=== PATIENT | male | born 1970 | race Caucasian/White ===

== ENCOUNTER → 2017-05-22 | Outpatient (CLI) | payer MEDICARE, OTHER ==
[~2017-05-22] MED LIST: ALPR0.25 PO; HYDR-3366 PO; MELO7.5T4 PO
[2017-05-22 08:02] LABS: ANION GAP 6 MEQ/L (5-15); AST (GOT) 11 U/L (15-37); BICARBONATE 25.8 MEQ/L (21.0-32.0); BLOOD UREA NITROGEN 19 MG/DL (7-18); CHLORIDE 109 MEQ/L (98-107); GLOMERULAR FILTRATION RATE 79 ML/MIN (>89); GLUCOSE,FASTING 101 MG/DL (74-99); POTASSIUM 3.9 MEQ/L (3.5-5.1); SODIUM (NA) 141 MEQ/L (136-145)
[2017-05-22 08:03] LABS: ALT (GPT) 22 U/L (12-78)
[2017-05-22 08:05] LABS: ALKALINE PHOSPHATASE 96 U/L (45-117)
== END ==
LOC: CLAB 07:11
PROVIDERS: ATTEND Family Medicine
DX: Q85.00 Neurofibromatosis, unspecified (principal)
CPT/HCPCS: 36415; 80053